=== PATIENT | female | born 1965 | race Caucasian/White ===

== ENCOUNTER 2022-10-20 11:20 | Inpatient (IN) | payer OTHER ==
[2022-10-20] VITALS (8 sets, daily range): BP systolic 101–126; BP diastolic 51–73
[~2022-10-20] VITALS: Ht 165.1 cm; Wt 170.0 kg
[2022-10-20 12:25] LABS: Basophils # (auto) 0 10 ^3/uL (0-0.2); Eosinophils # (auto) 0.1 10 ^3/uL (0-0.8); Lymphocytes # (auto) 1.7 10 ^3/uL (0.4-5.4); Nucleated Red Blood Cells % 0.4 %
[2022-10-20 12:29] LABS: Basophils % (auto) 0.3 % (0.0-2.0); Eosinophils % (auto) 1.4 % (0.0-7.0); Hematocrit 20.8 % (36.0-46.0); Mean Corpuscular Hemoglobin 20.3 pg (28.0-32.0); Mean Corpuscular Hgb Conc. 29.3 g/dL (32.0-36.0); Mean Corpuscular Volume 69.2 fL (80.0-100.0); Monocytes # (auto) 0.4 10 ^3/uL (0-1.3); Monocytes % (auto) 4.5 % (0.0-12.0); Neutrophils # (auto) 7.3 10 ^3/uL (1.6-8.6); Neutrophils % (auto) 75.8 % (37.0-80.0); Red Cell Distribution Width 18.7 % (11.8-14.3); White Blood Cell 9.6 10^3/uL (4.4-10.8)
[2022-10-20 12:34] LABS: INR 0.92 (0.9-1.15); Partial Thromboplastin Time 27.6 sec (24.6-33.4)
[2022-10-20 12:40] LABS: Hemoglobin 6.1 g/dL (12.2-16.2)
[2022-10-20 12:49] LABS: Albumin 3.5 g/dL (3.4-5.0); BUN/Creatinine Ratio 17.9; Calcium 9.1 mg/dL (8.5-10.1)
[2022-10-20 13:05] LABS: Bilirubin, Total 0.4 mg/dL (0.2-1.0)
[2022-10-20] MEDS ORDERED: NITROGLYCERIN 0.4 MG SL TAB SL PRN (16:30)
[2022-10-20] MEDS ORDERED: ONDANSETRON HCL 4 MG/2 ML VIAL IV PRN (16:30)
[2022-10-20] MEDS ORDERED: MORPHINE SULFATE INJ 2 MG/ml SYRG IV PRN (16:30)
[2022-10-20] MEDS ORDERED: LISI-716 PO (16:33)
[2022-10-20 17:17] LABS: Cholesterol 176 mg/dL (< 200)
[2022-10-20 17:20] LABS: HDL Cholesterol 46 mg/dL (40-59); LDL Cholesterol 114 mg/dL (< 100); Triglycerides 149 mg/dL (< 150)
[2022-10-20 17:24] LABS: % Iron Saturation 3.5 % (15-50)
[2022-10-20 17:36] LABS: Ferritin 2.7 ng/mL (10-322)
[2022-10-20 17:37] LABS: Folate (Folic Acid) 21.84 ng/mL (5.38-24)
[2022-10-20 18:38] LABS: Urine Bacteria NONE SEEN /hpf (None Seen); Urine Blood 1+ /uL (Negative); Urine Specific Gravity 1.017 (1.001-1.035); Urine WBC 2 /hpf (0 - 5)
[2022-10-21 01:00] VITALS: BP 109/55
[2022-10-21 01:15] VITALS: BP 111/70
[2022-10-21 03:27] LABS: Hematocrit 24.8 % (36.0-46.0); Hemoglobin 7.5 g/dL (12.2-16.2)
[2022-10-21 04:58] LABS: Basophils # (auto) 0 10 ^3/uL (0-0.2); Basophils % (auto) 0.5 % (0.0-2.0); Eosinophils # (auto) 0.2 10 ^3/uL (0-0.8); Lymphocytes # (auto) 1.8 10 ^3/uL (0.4-5.4); Monocytes # (auto) 0.4 10 ^3/uL (0-1.3); White Blood Cell 8.3 10^3/uL (4.4-10.8)
[2022-10-21 05:01] LABS: Eosinophils % (auto) 2.2 % (0.0-7.0); Hematocrit 23.7 % (36.0-46.0); Hemoglobin 7.4 g/dL (12.2-16.2); Lymphocytes % (auto) 21.3 % (10.0-50.0); Mean Corpuscular Hemoglobin 22.2 pg (28.0-32.0); Mean Corpuscular Hgb Conc. 31.3 g/dL (32.0-36.0); Mean Corpuscular Volume 70.8 fL (80.0-100.0); Monocytes % (auto) 5.1 % (0.0-12.0); Neutrophils # (auto) 5.9 10 ^3/uL (1.6-8.6); Neutrophils % (auto) 70.9 % (37.0-80.0); Nucleated Red Blood Cells % 0.3 %; Red Blood Cells 3.35 10^6/uL (4.0-5.20)
[2022-10-21 05:08] LABS: Red Cell Distribution Width 21.7 % (11.8-14.3)
[2022-10-21 05:14] LABS: Albumin 3.2 g/dL (3.4-5.0); Calcium 8.3 mg/dL (8.5-10.1); Potassium 4.2 mmol/L (3.5-5.1)
[2022-10-21 05:17] LABS: BUN/Creatinine Ratio 19.4; Bilirubin, Total 0.5 mg/dL (0.2-1.0); Total Protein 6.5 g/dL (6.4-8.2)
[2022-10-21] MEDS ORDERED: PANTOPRAZOLE 40 MG/10 ML VIAL INJ IV SCH (10:00)
[2022-10-21 12:24] LABS: Hematocrit 24.8 % (36.0-46.0); Hemoglobin 7.7 g/dL (12.2-16.2)
[2022-10-21 14:00] VITALS: BP 123/66
== END 2022-10-21 15:00 | disposition home or self-care (01) | DRG 812 ==
LOC: ER 11:20 → EDBD 11:20 → TELE 16:28
PROVIDERS: ADMIT Registered Nurse; ATTEND Nurse Practitioner Acute Care
PROC: 30233N1 Transfusion of Nonautologous Red Blood Cells into Peripheral Vein, Percutaneous Approach (ICD-10-PCS; principal; 2022-10-20)
DX: D64.9 Anemia, unspecified (principal); Z68.44 Body mass index [BMI] 60.0-69.9, adult; E66.01 Morbid (severe) obesity due to excess calories; E78.5 Hyperlipidemia, unspecified; N93.9 Abnormal uterine and vaginal bleeding, unspecified; G47.30 Sleep apnea, unspecified; I10 Essential (primary) hypertension; Z79.899 Other long term (current) drug therapy
CPT/HCPCS: 36415; 71045; 71250; 80053; 80061; 81001; 82607; 82728; 82746; 82962; 83036; 83540; 83550; 83615; 83735; 83880; 84443; 84484; 85014; 85018; 85025; 85045; 85610; 85730; 86850; 86900; 86901; 86920; 87426; 93005; 93306; C9113; G0378